=== PATIENT | female | born 1970 | race American Indian/Alaskan Native ===

== ENCOUNTER 2018-09-03 12:57 | Inpatient (IN) | payer OTHER ==
--- NOTE | 2018-09-03 14:16 | ED PDOC ---
Lower Extremity Pain/Injury Time Seen by Provider: 09/03/18 13:35 Chief Complaint (Nursing): Lower Extremity Problem/Injury Chief Complaint (Provider): Lower Extremity Problem/Injury History Per: Patient History/Exam Limitations: no limitations Onset/Duration Of Symptoms: Days Current Symptoms Are (Timing): Still Present Additional Complaint(s): 47 y/o female presents to the ED for evaluation of right lower extremity pain. Patient recently had a Patella Tear Repair to her right leg on 08/17/2018 by Orthopedic Surgeon, Dr. Potts. Patient reports of developing a fever, redness and pain to the area on 08/27/2018. Patient states she was seen and evaluated at a hospital in [place] yesterday where an XR was taken. Patient was given a dose of Vancomycin. Patient states her temperature today was 99.9. Patient reports of last taking Tylenol today. Patient was sent here by Dr. Potts's PA for further evaluation. PMD: unknown: Orthopedic Surgeon: Dr. Potts Past Medical History Reviewed: Historical Data, Nursing Documentation, Vital Signs Vital Signs: Last Vital Signs Temp 98.5 F 09/03/18 13:09 Pulse 86 09/03/18 13:09 Resp 20 09/03/18 13:09 BP 126/76 09/03/18 13:09 Pulse Ox 100 09/03/18 13:09 - Medical History PMH: HTN Denies: Chronic Kidney Disease - Surgical History Other surgeries: Patella Tear Repair on 08/17/2018 - Family History Family History: States: Unknown Family Hx - Home Medications Home Medications: Ambulatory Orders Medication Instructions Recorded Acetaminophen [Tylenol Extra 500 mg PO Q6 PRN 09/03/18 Strength] Ferrous Sulfate [Feosol] 325 mg PO Q12 09/03/18 Lactobacillus Combination No.8 1 cap PO DAILY 09/03/18 [Adult Probiotic] Multivitamin [Multi-Vitamin Daily] 1 tab PO DAILY 09/03/18 hydroCHLOROthiazide [Microzide] 12.5 mg PO DAILY 09/03/18 oxyCODONE/Acetaminophen [Percocet 1 tab PO Q6 PRN 09/03/18 5/325 mg Tab] traMADol [Ultram] 50 mg PO Q6 PRN 09/03/18 - Allergies Allergies/Adverse Reactions: Allergies Allergy/AdvReac Type Severity Reaction Status Date / Time codeine Allergy RASH Verified 09/03/18 13:07 ibuprofen [From Motrin] Allergy RASH Verified 09/03/18 13:07 Review of Systems ROS Statement: Except As Marked, All Systems Reviewed And Found Negative Constitutional: Positive for: Fever Musculoskeletal: Positive for: Leg Pain (right patella region) Physical Exam - Reviewed Nursing Documentation Reviewed: Yes Vital Signs Reviewed: Yes - Physical Exam Appears: Positive for: Uncomfortable Extremity: Positive for: Tenderness (to palpation.), Other (Right Knee adenimous, warm compared to left. No crepidous. No drainage, incision is clean, dry and intact. ). Negative for: Normal ROM (Decreased ROM secondary to pain. ) Neurologic/Psych: Positive for: Alert, Oriented. Negative for: Motor/Sensory Deficits - Laboratory Results Result Diagrams: 09/05/18 06:30 09/05/18 06:30 - ECG O2 Sat by Pulse Oximetry: 100 (RA) Pulse Ox Interpretation: Normal Medical Decision Making Medical Decision Making: Time: 1408 Plan: -- CMP -- CBC with Differential -- PTT -- Prothrombin Time -- Blood Culture Time: 1410 -- Spoke to Dr. Potts's PA, [facility] who states she will evaluate the patient in the ED at 1500 Time: 1500 -- Patient endorsed to Dr. Thayer, pending orthopedic PA evaluation and final ER disposition. Scribe Attestation: Documented by Chelsey Hodges, acting as a scribe for Kathy Ahmadi MD. Provider Scribe Attestation: All medical record entries made by the Scribe were at my direction and personally dictated by me. I have reviewed the chart and agree that the record accurately reflects my personal performance of the history, physical exam, medical decision making, and the department course for this patient. I have also personally directed, reviewed, and agree with the discharge instructions and disposition. Disposition - Clinical Impression Clinical Impression: Septic arthritis - Patient ED Disposition Is Patient to be Admitted: Transfer of Care - Disposition Disposition: Transfer of Care Disposition Time: 15:00 Condition: STABLE Patient Signed Over To: Alli Thayer Handoff Comments: pending orthopedic PA evaluation and final ER disposition.
[2018-09-03 14:59] LABS: INR 1.2; PROTHROMBIN TIME 14.1 Seconds (9.8-13.1)
[2018-09-03 15:01] LABS: PARTIAL THROMBOPLASTIN TIME 28.6 Seconds (25.6-37.1)
[2018-09-03 15:09] LABS: BASO # 0.1 K/uL (0.0-0.2); BASO % 0.7 % (0.0-2.0); EOS # 0.2 K/uL (0.0-0.7); EOS % 2.4 % (0.0-4.0); HEMOGLOBIN 8.2 g/dL (12.0-16.0); LYMPH # 1.8 K/uL (1.0-4.3); LYMPH % 24.7 % (20.0-40.0); MEAN CELL VOLUME 82.4 fl (81.0-99.0); MEAN CORPUSCULAR HEMOGLOBIN 25.4 pg (27.0-31.0); MEAN CORPUSCULAR HGB CONC 30.8 g/dL (33.0-37.0); MONO # 0.5 K/uL (0.0-0.8); MONO % 7.4 % (0.0-10.0); NEUT # 4.8 K/uL (1.8-7.0); NEUT % 64.8 % (50.0-75.0); NRBC % 0.1 % (0.0-0.0); RBC 3.24 Mil/uL (3.80-5.20); RED CELL DISTRIBUTION WIDTH 12.8 % (11.5-14.5); WHITE BLOOD COUNT 7.3 K/uL (4.8-10.8)
[2018-09-03 15:14] LABS: ALBUMIN 3.7 g/dL (3.5-5.0); ALT/SGPT 16 U/L (9-52); AST/SGOT 33 U/L (14-36); BLOOD UREA NITROGEN 12 mg/dl (7-17); CALCIUM 8.9 mg/dL (8.4-10.2); GFR NON-AFRICAN AMERICAN > 60
[2018-09-03] MEDS ORDERED: Povidone Iodine Oint 10% Foilpak UD ONE (15:18)
--- NOTE | 2018-09-03 15:33 | ED PDOC ---
- Laboratory Results Result Diagrams: 09/03/18 14:30 09/03/18 14:30 Interpretation Of Abn Labs: wbc in synovial fluid - ECG O2 Sat by Pulse Oximetry: 100 (RA) Pulse Ox Interpretation: Normal - Progress ED Course And Treament: 1850: Stable. Does not meet sepsis criteria. Spoke with Dr. Castillo, who will admit. Medical Decision Making Medical Decision Making: Time: 1500 -- Patient endorsed to me by Dr. Thayer, pending orthopedic PA evaluation and final ER disposition. ____ Scribe Attestation: Documented by Chelsey Hodges, acting as a scribe for Alli Thayer MD. Provider Scribe Attestation: All medical record entries made by the Scribe were at my direction and personally dictated by me. I have reviewed the chart and agree that the record accurately reflects my personal performance of the history, physical exam, medical decision making, and the department course for this patient. I have also personally directed, reviewed, and agree with the discharge instructions and disposition. 1630: Stable. Spoke with Dr. Delroy Clemons. She tapped the knee and waiting results. Potentially will take to the OR if needed. NPO. 1845: Dr. Rizzo at bedside. Wants admit to medicine. Pt. to go to the OR for cleaning tomorrow. Stable. AAOx3. Disposition - Clinical Impression Clinical Impression: Septic arthritis - POA Present On Arrival: Surgical Site Infection - Disposition Disposition: Admitted as In-Patient Disposition Time: 18:46 Condition: FAIR
[2018-09-03] MEDS ORDERED: Lidocaine 1% Inj (20ml) IJ STA (15:54)
[2018-09-03] MEDS ORDERED: Lidocaine 1% Inj (20ml) ONE (16:00)
--- NOTE | 2018-09-03 16:53 | CP.PCM.CON ---
History of Present Illness - History of Present Illness History of Present Illness: 47 yo F pt of Dr. Potts presents with right knee pain and swelling. Pt had right knee arthroscopy [address] Potts. Pt reports one week later started to have fevers, swelling, redness and warmth of right knee. Pt currently ambulating with a walker. Pt seen in office to today and sent to ED for rt knee aspiration and possible I&D. Pt reports she went back to ED yesterday and received IV abx and was discharged. Pt reports limited and painful ROM of right knee. Denies SOB, chest pain, N/V/D, numbness/tingling RLE. Denies current fever or chills. Denies wound drainage. Review of Systems - Constitutional Constitutional: As Per HPI, Chills. absent: Anorexia, Daytime Sleepiness, Excessive Sweating, Fatigue, Fever, Frequent Falls, Headache, Increased Appe tite, Lethargy, Malaise, Night Sweats, Snoring, Sleep Apnea, Weight Gain, Weight Loss, Weakness, Other - Musculoskeletal Musculoskeletal: As Per HPI Past Patient History - Past Social History Smoking Status: Never Smoked - CARDIAC Hx Hypertension: Yes - PULMONARY Hx Respiratory Disorders: No - NEUROLOGICAL Hx Neurological Disorder: No - HEENT Hx HEENT Problems: No - RENAL Hx Chronic Kidney Disease: No - ENDOCRINE/METABOLIC Hx Endocrine Disorders: No - HEMATOLOGICAL/ONCOLOGICAL Other/Comment: G6PD deficiency - INTEGUMENTARY Hx Dermatological Problems: No - MUSCULOSKELETAL/RHEUMATOLOGICAL Hx Musculoskeletal Disorders: No - GASTROINTESTINAL Hx Gastrointestinal Disorders: No - GENITOURINARY/GYNECOLOGICAL Hx Genitourinary Disorders: No - PSYCHIATRIC Hx Psychophysiologic Disorder: No Hx Substance Use: No - SURGICAL HISTORY Hx Surgeries: Yes Hx Orthopedic Surgery: Yes (patella tear R knee) - ANESTHESIA Hx Anesthesia: Yes Hx Anesthesia Reactions: No Hx Malignant Hyperthermia: No Meds Allergies/Adverse Reactions: Allergies Allergy/AdvReac Type Severity Reaction Status Date / Time codeine Allergy RASH Verified 09/03/18 13:07 ibuprofen [From Motrin] Allergy RASH Verified 09/03/18 13:07 Physical Exam - Constitutional Appears: Well - Respiratory Exam Respiratory Exam: Clear to Auscultation Bilateral, NORMAL BREATHING PATTERN - Cardiovascular Exam Cardiovascular Exam: REGULAR RHYTHM, RRR - Extremities Exam Additional comments: RLE: +swelling, +erythema, +warmth Incision sites C/D/I ROM limited due to pain, apin with flexion Active flexion to 30deg Calves soft and nontender b/l DIstal pulses wnl N/V intact distally Results - Vital Signs Recent Vital Signs: Last Vital Signs Temp 98.5 F 09/03/18 13:09 Pulse 86 09/03/18 13:09 Resp 20 09/03/18 13:09 BP 126/76 09/03/18 13:09 Pulse Ox 100 09/03/18 16:42 - Labs Result Diagrams: 09/03/18 14:30 09/03/18 14:30 Labs: Laboratory Results - last 24 hr 09/03/18 09/03/18 09/03/18 14:30 14:30 14:30 WBC 7.3 RBC 3.24 L Hgb 8.2 L Hct 26.7 L MCV 82.4 MCH 25.4 L MCHC 30.8 L RDW 12.8 Plt Count 458 H MPV 9.0 Neut % (Auto) 64.8 Lymph % (Auto) 24.7 [place] % (Auto) 7.4 Eos % (Auto) 2.4 Baso % (Auto) 0.7 Neut # (Auto) 4.8 Lymph # (Auto) 1.8 [place] # (Auto) 0.5 Eos # (Auto) 0.2 Baso # (Auto) 0.1 PT 14.1 H INR 1.2 APTT 28.6 Sodium 138 Potassium 4.3 Chloride 102 Carbon Dioxide 29 Anion Gap 11 BUN 12 Creatinine 0.6 L Est GFR ( Amer) > 60 Est GFR (Non-Af Amer) > 60 Random Glucose 89 Calcium 8.9 Total Bilirubin 0.6 AST 33 ALT 16 Alkaline Phosphatase 53 Total Protein 7.4 Albumin 3.7 Globulin 3.7 Albumin/Globulin Ratio 1.0 Assessment & Plan - Assessment and Plan (Free Text) Assessment: 47 yo F presents with right knee possible septic arthritis Plan: Pt right knee aspirated in sterile manner, rt knee area cleaned with betadine, 1cc lidocaine injected, 6cc bloody fluid aspirated Pending lab results- gram stain, culture and cell count Pt white count wnl- pt received IV abx yesterday in ER NPO Pt may require rt knee arthroscopic I&D pending lab results by Dr. Rizzo- cover ing for Dr. Potts Discussed with Dr. Rizzo - Date & Time Date: 09/03/18 Time: 17:00
[2018-09-03 16:54] LABS: FLUID TYPE SYNOVIAL FLUID
[2018-09-03 17:30] LABS: SF GROSS APPEARANCE BLOODY (CLEAR)
[2018-09-03 17:49] LABS: SYNOVIAL FLUID MONO/MACROPHAGE 4 % (0-0)
[2018-09-03] MEDS ORDERED: Vancomycin 1 g Inj ONE (18:54)
[2018-09-04] MEDS: Morphine 4 MG/ML VIAL IVP PRN ×3 (04:50→22:53)
--- NOTE | 2018-09-04 09:21 | CP.PCM.HP ---
History of Present Illness - History of Present Illness History of Present Illness: 47 YR OLD FEMALE ADMITTED WITH C/O R KNEE PAIN,FEVER WITH CHILLS,REDNESS OF R KNEE AND DIFFICULTY AMBULATING.SHE IS S/P R KNEE ARTHROSCOPIC SURGERY 1 WEEK AGO FOLLOWING TRAUMA AT WORK. SHE HAD R KNEE ARTHROCENTESES DONE YESTERDAY FOR EVALUATION OF SEPTIC ARTHRITIS. PMH-HTN AND G6PD DEFICIENCY HX OF CODEINE ALLERGY Present on Admission - Present on Admission Any Indicators Present on Admission: No Past Patient History - Past Medical History & Family History Past Medical History?: Yes - Past Social History Smoking Status: Never Smoked - CARDIAC Hx Cardiac Disorders: Yes Hx Angina: No Hx Cardia Arrhythmia: No Hx Congestive Heart Failure: No Hx Heart Attack: No Hx Heart Murmur: No Hx Heart Transplant: No Hx Hypercholesterolemia: No Hx Hypertension: Yes Hx Hypotension: No Hx Internal Defibrillator: No Hx Mitral Valve Prolapse: No Hx Pacemaker: No Hx Peripheral Edema: No Hx Peripheral Vascular Disease: No - PULMONARY Hx Respiratory Disorders: No - NEUROLOGICAL Hx Neurological Disorder: No - HEENT Hx HEENT Problems: No - RENAL Hx Chronic Kidney Disease: No - ENDOCRINE/METABOLIC Hx Endocrine Disorders: No - HEMATOLOGICAL/ONCOLOGICAL Hx AIDS: No Hx Human Immunodeficiency Virus (HIV): No - INTEGUMENTARY Hx Dermatological Problems: No - MUSCULOSKELETAL/RHEUMATOLOGICAL Hx Musculoskeletal Disorders: Yes Hx Arthritis: Yes Hx Falls: No - GASTROINTESTINAL Hx Gastrointestinal Disorders: No Hx Bowel Surgery: No Hx Clostridium Difficile: No Hx Colitis: No Hx Colostomy: No Hx Crohn's Disease: No Hx Diverticulitis: No Hx Esophageal Varices: No Hx Fatty Liver Disease: No Hx Gall Bladder Disease: No Hx Gastritis: No Hx Gastroesophageal Reflux: Yes Hx Hemorrhoids: Yes Hx Ileostomy: No Hx Irritable Bowel: No Hx Liver Failure: No Hx Pancreatitis: No HX Swallowing Problems: No Hx Ulcer: No Other/Comment: H.Pylori - GENITOURINARY/GYNECOLOGICAL Hx Genitourinary Disorders: No - PSYCHIATRIC Hx Psychophysiologic Disorder: No Hx Substance Use: No - SURGICAL HISTORY Hx Surgeries: Yes Hx Abdominal Aortic Aneurysm Repair: No Hx Amputation: No Hx Angiogram: No Hx Angioplasty: No Hx Appendectomy: No Hx Arteriovenous Shunt: No Hx Arthroscopy: No Hx Bile Duct Stent: No Hx Breast Biopsy: No Hx Cataract Extraction: No Hx Cardiac Catheterization: No Hx Carotid Endarterectomy: No Hx Section: No Hx Cholecystectomy: No Hx Coronary Artery Bypass Graft: No Hx Coronary Stent: No Hx Dilation and Curettage: No Hx Eye Surgery: No Hx Femoral-Popliteal Bypass Graft: No Hx Gastric Bypass Surgery: No Hx Herniorrhaphy: No Hx Hysterectomy: No Hx Joint Replacement: No Hx Kidney Transplant: No Hx Liver Transplant: No Hx Mastectomy: No Hx Musculoskeletal Surgery: No Hx Open Heart Surgery: No Hx Open Reduction Internal Fixation: No Hx Orthopedic Surgery: Yes (patella tear R knee) Hx Parathyroidectomy: No Hx Penile Implant: No Hx Pulmonary Surgery: No Hx Splenectomy: No Hx Thyroidectomy: No Hx Tonsillectomy: No Hx Tubal Ligation: No Hx Valve Replacement: No Hx Vascular Surgery: No Hx Vascular Access Device: No - ANESTHESIA Hx Anesthesia: Yes Hx Anesthesia Reactions: No Hx Malignant Hyperthermia: No Has any member of the family had a problem w/ anesthesia?: No Meds Allergies/Adverse Reactions: Allergies Allergy/AdvReac Type Severity Reaction Status Date / Time codeine Allergy RASH Verified 09/03/18 13:07 ibuprofen [From Motrin] Allergy RASH Verified 09/03/18 13:07 Physical Exam - Constitutional Appears: Well, In Acute Distress - Head Exam Head Exam: ATRAUMATIC, NORMAL INSPECTION, NORMOCEPHALIC - Eye Exam Eye Exam: EOMI, Normal appearance, PERRL Pupil Exam: NORMAL ACCOMODATION, PERRL - ENT Exam ENT Exam: Mucous Membranes Moist, Normal Exam - Neck Exam Neck exam: Positive for: Normal Inspection - Respiratory Exam Respiratory Exam: Clear to Auscultation Bilateral, NORMAL BREATHING PATTERN - Cardiovascular Exam Cardiovascular Exam: REGULAR RHYTHM - GI/Abdominal Exam GI & Abdominal Exam: Normal Bowel Sounds, Soft. absent: Tenderness - Rectal Exam Rectal Exam: NORMAL INSPECTION - Extremities Exam Extremities exam: Positive for: tenderness Additional comments: R KNEE SWELLING AND TENDERNESS WITH POOR RANGE OF MOTION SURGICAL SITE CLEAN NO CALF TENDERNESS - Back Exam Back exam: NORMAL INSPECTION - Neurological Exam Neurological exam: Alert, CN II-XII Intact, Normal Gait, Oriented x3, Reflexes Normal - Psychiatric Exam Psychiatric exam: Normal Affect, Normal Mood - Skin Skin Exam: Dry, Intact, Normal Color, Warm Results - Vital Signs Recent Vital Signs: Last Vital Signs Temp 98.5 F 09/04/18 09:07 Pulse 78 09/04/18 09:07 Resp 20 09/04/18 09:07 BP 119/79 09/04/18 09:07 Pulse Ox 99 09/04/18 09:07 - Labs Result Diagrams: 09/03/18 14:30 09/03/18 14:30 Labs: Laboratory Results - last 24 hr 09/03/18 09/03/18 09/03/18 14:30 14:30 14:30 WBC 7.3 RBC 3.24 L Hgb 8.2 L Hct 26.7 L MCV 82.4 MCH 25.4 L MCHC 30.8 L RDW 12.8 Plt Count 458 H MPV 9.0 Neut % (Auto) 64.8 Lymph % (Auto) 24.7 [place] % (Auto) 7.4 Eos % (Auto) 2.4 Baso % (Auto) 0.7 Neut # (Auto) 4.8 Lymph # (Auto) 1.8 [place] # (Auto) 0.5 Eos # (Auto) 0.2 Baso # (Auto) 0.1 PT 14.1 H INR 1.2 APTT 28.6 Sodium 138 Potassium 4.3 Chloride 102 Carbon Dioxide 29 Anion Gap 11 BUN 12 Creatinine 0.6 L Est GFR ( Amer) > 60 Est GFR (Non-Af Amer) > 60 Random Glucose 89 Calcium 8.9 Total Bilirubin 0.6 AST 33 ALT 16 Alkaline Phosphatase 53 Total Protein 7.4 Albumin 3.7 Globulin 3.7 Albumin/Globulin Ratio 1.0 Fluid Type Synovial WBC Synovial RBC Synovial Neutrophils Synovial Lymphocytes Synov Monos/Macrophage Synovial Fluid Comment 09/03/18 16:45 WBC RBC Hgb Hct MCV MCH MCHC RDW Plt Count MPV Neut % (Auto) Lymph % (Auto) [place] % (Auto) Eos % (Auto) Baso % (Auto) Neut # (Auto) Lymph # (Auto) [place] # (Auto) Eos # (Auto) Baso # (Auto) PT INR APTT Sodium Potassium Chloride Carbon Dioxide Anion Gap BUN Creatinine Est GFR ( Amer) Est GFR (Non-Af Amer) Random Glucose Calcium Total Bilirubin AST ALT Alkaline Phosphatase Total Protein Albumin Globulin Albumin/Globulin Ratio Fluid Type Synovial fluid Synovial WBC 2484.0 H Synovial RBC 60417.0 H Synovial Neutrophils 93.0 H Synovial Lymphocytes 3.0 H Synov Monos/Macrophage 4 H Synovial Fluid Comment TEST NOT PERFORMED Assessment & Plan - Assessment and Plan (Free Text) Assessment: SEPTIC ARTHRITIS OF R KNEE HX OF HTN-STABLE HX OG6PD DEFICIENCY Plan: PT RECENTLY HAD A COMPLETE WORKUP PRIOR TO KNEE SURGERY MEDICALLY CLEARED FOR R KNEE SURGERY - Date & Time Date: 09/04/18 Time: 09:30
[2018-09-04] MEDS ORDERED: Lidocaine 1% 5ml Abboject ONE (09:41)
[2018-09-04] MEDS ORDERED: Midazolam 2 MG/2 ML VIAL ONE (09:41)
[2018-09-04] MEDS ORDERED: Lidocaine 2% Jelly (5 ml) TOP ONE (09:41)
[2018-09-04] MEDS ORDERED: Propofol 10 mg/ml Inj (20 ML) ONE (09:41)
[2018-09-04] MEDS ORDERED: Bupivacaine 0.5% Inj(30mL) ONE (09:44)
[2018-09-04] MEDS ORDERED: Lidocaine 1% Inj (20ml) ONE (09:44)
[2018-09-04] MEDS ORDERED: Lactated Ringer's 1,000 ML IV ONE (10:15)
--- NOTE | 2018-09-04 11:38 | PCM.SURG1 ---
Surgeon's Initial Post Op Note - Surgeon's Notes Surgeon: Duane Rizzo MD Assistant Office Manager: Ken Conner PA-C Type of Anesthesia: General Endo, General LMA Pre-Operative Diagnosis: Infected right knee Operative Findings: see op report Post-Operative Diagnosis: same as pre-op dx Operation Performed: Arthroscopic right knee irrigation and debridement Specimen/Specimens Removed: cultures Estimated Blood Loss: EBL {In ML}: 3 Date of Surgery/Procedure: 09/04/18 Time of Surgery/Procedure: 10:30
--- NOTE | 2018-09-04 13:37 | CP.PCM.CON ---
History of Present Illness - History of Present Illness History of Present Illness: Infectious Disease Consultation- Asked to see this patient at the request of for septic knee joint. HPI- Patient is a 47 year old female who was admitted for treatment o f septic right knee. PAtietn sattes that she injured her knee at work and was seen By DR. horn and had arthroscopy 08/17/2018 and few days later she noticed that the knee was getting swollen and red and she developed fever of up to 102 and initially she went to ED [facility] and was given a dose of vancomycin and she felt slightly better but she was d/c and her symptom were not improving and hence she spoke to her ortho doctor who advised her to come to [facility] and be admitted for further work up and treatment of this. pt. is s/p Right Knee arthroscopy earlier today with drainage of both bloody and purulent fluid as per patient. I'm asked to evaluate and help with antibiotic management. She denies any fever or chills at thi time. She states her knee is still swollen and tender but not as red as before and no dark discoloration as she had a week ago. PMH-HTN AND G6PD DEFICIENCY HX OF CODEINE ALLERGY denies any allergy to any antibiotics. Review of Systems - Review of Systems Review of Systems: ROS- had fever but denies any fever now, jake any BRITO, denies any cough or sob, denies trevor ehst pain, denies any abd. pain, denies any nausea or vomiting, denies any dysurea, denies any diarrhea Right knee edema and redness and pain Past Patient History - Past Medical History & Family History Past Medical History?: Yes - Past Social History Smoking Status: Never Smoked - CARDIAC Hx Cardiac Disorders: Yes Hx Angina: No Hx Cardia Arrhythmia: No Hx Congestive Heart Failure: No Hx Heart Attack: No Hx Heart Murmur: No Hx Heart Transplant: No Hx Hypercholesterolemia: No Hx Hypertension: Yes Hx Hypotension: No Hx Internal Defibrillator: No Hx Mitral Valve Prolapse: No Hx Pacemaker: No Hx Peripheral Edema: No Hx Peripheral Vascular Disease: No - PULMONARY Hx Respiratory Disorders: No - NEUROLOGICAL Hx Neurological Disorder: No - HEENT Hx HEENT Problems: No - RENAL Hx Chronic Kidney Disease: No - ENDOCRINE/METABOLIC Hx Endocrine Disorders: No - INTEGUMENTARY Hx Dermatological Problems: No - MUSCULOSKELETAL/RHEUMATOLOGICAL Hx Musculoskeletal Disorders: Yes Hx Arthritis: Yes Hx Falls: No - GASTROINTESTINAL Hx Gastrointestinal Disorders: No Hx Bowel Surgery: No Hx Clostridium Difficile: No Hx Colitis: No Hx Colostomy: No Hx Crohn's Disease: No Hx Diverticulitis: No Hx Esophageal Varices: No Hx Fatty Liver Disease: No Hx Gall Bladder Disease: No Hx Gastritis: No Hx Gastroesophageal Reflux: Yes Hx Hemorrhoids: Yes Hx Ileostomy: No Hx Irritable Bowel: No Hx Liver Failure: No Hx Pancreatitis: No HX Swallowing Problems: No Hx Ulcer: No Other/Comment: H.Pylori - GENITOURINARY/GYNECOLOGICAL Hx Genitourinary Disorders: No - PSYCHIATRIC Hx Psychophysiologic Disorder: No Hx Substance Use: No - SURGICAL HISTORY Hx Surgeries: Yes Hx Abdominal Aortic Aneurysm Repair: No Hx Amputation: No Hx Angiogram: No Hx Angioplasty: No Hx Appendectomy: No Hx Arteriovenous Shunt: No Hx Arthroscopy: No Hx Bile Duct Stent: No Hx Breast Biopsy: No Hx Cataract Extraction: No Hx Cardiac Catheterization: No Hx Carotid Endarterectomy: No Hx Section: No Hx Cholecystectomy: No Hx Coronary Artery Bypass Graft: No Hx Coronary Stent: No Hx Dilation and Curettage: No Hx Eye Surgery: No Hx Femoral-Popliteal Bypass Graft: No Hx Gastric Bypass Surgery: No Hx Herniorrhaphy: No Hx Hysterectomy: No Hx Joint Replacement: No Hx Kidney Transplant: No Hx Liver Transplant: No Hx Mastectomy: No Hx Musculoskeletal Surgery: No Hx Open Heart Surgery: No Hx Open Reduction Internal Fixation: No Hx Orthopedic Surgery: Yes (patella tear R knee) Hx Parathyroidectomy: No Hx Penile Implant: No Hx Pulmonary Surgery: No Hx Splenectomy: No Hx Thyroidectomy: No Hx Tonsillectomy: No Hx Tubal Ligation: No Hx Valve Replacement: No Hx Vascular Surgery: No Hx Vascular Access Device: No - ANESTHESIA Hx Anesthesia: Yes Hx Anesthesia Reactions: No Hx Malignant Hyperthermia: No Has any member of the family had a problem w/ anesthesia?: No Meds Allergies/Adverse Reactions: Allergies Allergy/AdvReac Type Severity Reaction Status Date / Time codeine Allergy RASH Verified 09/03/18 13:07 ibuprofen [From Motrin] Allergy RASH Verified 09/03/18 13:07 - Medications Medications: Current Medications Acetaminophen (Tylenol 325mg Tab) 650 mg PO Q4 PRN PRN Reason: temperature 101 F and above Hydrochlorothiazide (Microzide) 12.5 mg PO DAILY LINDA Vancomycin HCl 1 gm/ Sodium (Chloride) 250 mls @ 166.667 mls/hr IVPB DAILY LINDA; Protocol Lactated Ringer's (Lactated Ringer's) 1,000 mls @ 100 mls/hr IV .Q10H LINDA Meperidine HCl (Demerol) 25 mg IVP Q10M PRN PRN Reason: Pain, moderate (4-7) Last Admin: 09/04/18 11:40 Dose: 25 mg Morphine Sulfate (Morphine) 2 mg IVP Q6 PRN PRN Reason: Pain, severe (8-10) Last Admin: 09/04/18 04:50 Dose: 2 mg Ondansetron HCl (Zofran Inj) 4 mg IVP ONCE PRN PRN Reason: Nausea/Vomiting Stop: 09/04/18 13:42 Physical Exam - Constitutional Appears: No Acute Distress - Head Exam Head Exam: ATRAUMATIC - Eye Exam Eye Exam: EOMI, PERRL - ENT Exam ENT Exam: Normal Oropharynx - Neck Exam Neck exam: Positive for: Full Rom - Respiratory Exam Respiratory Exam: Clear to Auscultation Bilateral, NORMAL BREATHING PATTERN - Cardiovascular Exam Cardiovascular Exam: RRR, +S1, +S2 - GI/Abdominal Exam GI & Abdominal Exam: Normal Bowel Sounds, Soft Additional comments: NT, Nd - Extremities Exam Additional comments: right patellar region with edema and tenderness , warm to touch mild erythema no discharge - Neurological Exam Neurological exam: Alert, Oriented x3 Results - Vital Signs Recent Vital Signs: Last Vital Signs Temp 97 F L 09/04/18 12:35 Pulse 78 09/04/18 12:35 Resp 18 09/04/18 12:35 BP 145/86 09/04/18 12:35 Pulse Ox 97 09/04/18 12:35 - Labs Result Diagrams: 09/03/18 14:30 09/03/18 14:30 Labs: Laboratory Results - last 24 hr 09/03/18 09/03/18 09/03/18 14:30 14:30 14:30 WBC 7.3 RBC 3.24 L Hgb 8.2 L Hct 26.7 L MCV 82.4 MCH 25.4 L MCHC 30.8 L RDW 12.8 Plt Count 458 H MPV 9.0 Neut % (Auto) 64.8 Lymph % (Auto) 24.7 [place] % (Auto) 7.4 Eos % (Auto) 2.4 Baso % (Auto) 0.7 Neut # (Auto) 4.8 Lymph # (Auto) 1.8 [place] # (Auto) 0.5 Eos # (Auto) 0.2 Baso # (Auto) 0.1 PT 14.1 H INR 1.2 APTT 28.6 Sodium 138 Potassium 4.3 Chloride 102 Carbon Dioxide 29 Anion Gap 11 BUN 12 Creatinine 0.6 L Est GFR ( Amer) > 60 Est GFR (Non-Af Amer) > 60 Random Glucose 89 Calcium 8.9 Total Bilirubin 0.6 AST 33 ALT 16 Alkaline Phosphatase 53 Total Protein 7.4 Albumin 3.7 Globulin 3.7 Albumin/Globulin Ratio 1.0 Fluid Type Synovial WBC Synovial RBC Synovial Neutrophils Synovial Lymphocytes Synov Monos/Macrophage Synovial Fluid Comment 09/03/18 16:45 WBC RBC Hgb Hct MCV MCH MCHC RDW Plt Count MPV Neut % (Auto) Lymph % (Auto) [place] % (Auto) Eos % (Auto) Baso % (Auto) Neut # (Auto) Lymph # (Auto) [place] # (Auto) Eos # (Auto) Baso # (Auto) PT INR APTT Sodium Potassium Chloride Carbon Dioxide Anion Gap BUN Creatinine Est GFR ( Amer) Est GFR (Non-Af Amer) Random Glucose Calcium Total Bilirubin AST ALT Alkaline Phosphatase Total Protein Albumin Globulin Albumin/Globulin Ratio Fluid Type Synovial fluid Synovial WBC 2484.0 H Synovial RBC 65744.0 H Synovial Neutrophils 93.0 H Synovial Lymphocytes 3.0 H Synov Monos/Macrophage 4 H Synovial Fluid Comment TEST NOT PERFORMED Laboratory Results - last 72 hr 09/03/18 09/03/18 09/03/18 14:30 14:30 14:30 WBC 7.3 RBC 3.24 L Hgb 8.2 L Hct 26.7 L MCV 82.4 MCH 25.4 L MCHC 30.8 L RDW 12.8 Plt Count 458 H MPV 9.0 Neut % (Auto) 64.8 Lymph % (Auto) 24.7 [place] % (Auto) 7.4 Eos % (Auto) 2.4 Baso % (Auto) 0.7 Neut # (Auto) 4.8 Lymph # (Auto) 1.8 [place] # (Auto) 0.5 Eos # (Auto) 0.2 Baso # (Auto) 0.1 PT 14.1 H INR 1.2 APTT 28.6 Sodium 138 Potassium 4.3 Chloride 102 Carbon Dioxide 29 Anion Gap 11 BUN 12 Creatinine 0.6 L Est GFR ( Amer) > 60 Est GFR (Non-Af Amer) > 60 Random Glucose 89 Calcium 8.9 Total Bilirubin 0.6 AST 33 ALT 16 Alkaline Phosphatase 53 Total Protein 7.4 Albumin 3.7 Globulin 3.7 Albumin/Globulin Ratio 1.0 Fluid Type Synovial WBC Synovial RBC Synovial Neutrophils Synovial Lymphocytes Synov Monos/Macrophage Synovial Fluid Comment 09/03/18 16:45 WBC RBC Hgb Hct MCV MCH MCHC RDW Plt Count MPV Neut % (Auto) Lymph % (Auto) [place] % (Auto) Eos % (Auto) Baso % (Auto) Neut # (Auto) Lymph # (Auto) [place] # (Auto) Eos # (Auto) Baso # (Auto) PT INR APTT Sodium Potassium Chloride Carbon Dioxide Anion Gap BUN Creatinine Est GFR ( Amer) Est GFR (Non-Af Amer) Random Glucose Calcium Total Bilirubin AST ALT Alkaline Phosphatase Total Protein Albumin Globulin Albumin/Globulin Ratio Fluid Type Synovial fluid Synovial WBC 2484.0 H Synovial RBC 01133.0 H Synovial Neutrophils 93.0 H Synovial Lymphocytes 3.0 H Synov Monos/Macrophage 4 H Synovial Fluid Comment TEST NOT PERFORMED Microbiology 09/03/18 15:20 Blood-Venous Blood Culture - Preliminary NO GROWTH AFTER 24 HOURS 09/03/18 14:30 Blood-Venous Blood Culture - Preliminary NO GROWTH AFTER 24 HOURS 09/03/18 17:11 Other: Please Indicate Gram Stain - Final 09/03/18 17:11 Other: Please Indicate Body Fluid Culture - Preliminary NO GROWTH AFTER 24 HOURS Assessment & Plan (1) Septic arthritis Status: Acute - Assessment and Plan (Free Text) Assessment: A/P- 47 year old female with septic right knee. fever has subsided. normal wbc count blood cx- neg x 2 synovial fluid cx- pending synovial fluid cell count almost 3000 with almost all neutrophils. Plan- await synovial fluid cx. advsie to continue with IV vancomyicn that was initiated by the admitting team. keep vanco trough between 10-15. keep the right leg elevated . All labs and imaging results and chart notes reviewed. All above d/w patient in the presence of the nurse and patient verbalizes full understanding of all above and agrees with above plan of care. Thank you for allowing me to take part in the care of this patient.
[2018-09-04] MEDS: Lactated Ringer's 1,000 ML IV SCH ×2 (17:08→22:00)
--- NOTE | 2018-09-04 18:09 | CARD ---
APPROVED REPORT Date of service: 09/03/2018 EKG Measurement Heart [id number] <Conclusion> Normal sinus rhythm Normal ECG
[2018-09-05 07:52] LABS: BASO % 0.6 % (0.0-2.0); EOS # 0.3 K/uL (0.0-0.7); EOS % 3.9 % (0.0-4.0); HEMOGLOBIN 7.9 g/dL (12.0-16.0); LYMPH % 28.6 % (20.0-40.0); MEAN CELL VOLUME 80.6 fl (81.0-99.0); MEAN CORPUSCULAR HEMOGLOBIN 25.2 pg (27.0-31.0); MEAN CORPUSCULAR HGB CONC 31.2 g/dL (33.0-37.0); MEAN PLATELET VOLUME 8.5 fl (7.2-11.7); MONO # 0.6 K/uL (0.0-0.8); MONO % 8.5 % (0.0-10.0); NEUT # 4.2 K/uL (1.8-7.0); NEUT % 58.4 % (50.0-75.0); RBC 3.15 Mil/uL (3.80-5.20); WHITE BLOOD COUNT 7.1 K/uL (4.8-10.8)
[2018-09-05 08:27] LABS: BLOOD UREA NITROGEN 7 mg/dl (7-17); CALCIUM 8.5 mg/dL (8.4-10.2); GFR NON-AFRICAN AMERICAN > 60
[2018-09-05] MEDS: Morphine 4 MG/ML VIAL IVP PRN (11:09)
--- NOTE | 2018-09-05 11:47 | CP.PCM.PN ---
Subjective - Date & Time of Evaluation Date of Evaluation: 09/05/18 Time of Evaluation: 11:49 - Subjective Subjective: S/P I AND D OF R KNEE R KNEE STILL SWOLLEN Objective - Vital Signs/Intake and Output Vital Signs (last 24 hours): Temp Pulse Resp BP Pulse Ox 97.7 F 76 20 128/76 98 09/05/18 09:02 09/05/18 09:02 09/05/18 09:02 09/05/18 09:02 09/05/18 09:02 - Medications Medications: Current Medications Acetaminophen (Tylenol 325mg Tab) 650 mg PO Q4 PRN PRN Reason: temperature 101 F and above Hydrochlorothiazide (Microzide) 12.5 mg PO DAILY LINDA Last Admin: 09/05/18 08:42 Dose: Not Given Vancomycin HCl 1 gm/ Sodium (Chloride) 250 mls @ 166.667 mls/hr IVPB DAILY LINDA; Protocol Last Admin: 09/05/18 08:42 Dose: 166.667 mls/hr Lactated Ringer's (Lactated Ringer's) 1,000 mls @ 100 mls/hr IV .Q10H LINDA Last Admin: 09/04/18 22:00 Dose: 100 mls/hr Meperidine HCl (Demerol) 25 mg IVP Q10M PRN PRN Reason: Pain, moderate (4-7) Last Admin: 09/04/18 11:40 Dose: 25 mg Morphine Sulfate (Morphine) 2 mg IVP Q6 PRN PRN Reason: Pain, severe (8-10) Last Admin: 09/05/18 11:09 Dose: 2 mg - Labs Labs: 09/05/18 06:30 09/05/18 06:30 PT 14.1 Seconds (9.8-13.1) H 09/03/18 14:30 INR 1.2 09/03/18 14:30 APTT 28.6 Seconds (25.6-37.1) 09/03/18 14:30 - Constitutional Appears: No Acute Distress - Head Exam Head Exam: ATRAUMATIC, NORMAL INSPECTION, NORMOCEPHALIC - Eye Exam Eye Exam: EOMI, Normal appearance, PERRL Pupil Exam: NORMAL ACCOMODATION, PERRL - ENT Exam ENT Exam: Mucous Membranes Moist, Normal Exam - Neck Exam Neck Exam: Full ROM, Normal Inspection. absent: Lymphadenopathy - Respiratory Exam Respiratory Exam: Clear to Ausculation Bilateral, NORMAL BREATHING PATTERN - Cardiovascular Exam Cardiovascular Exam: REGULAR RHYTHM, +S1, +S2. absent: Murmur - GI/Abdominal Exam GI & Abdominal Exam: Soft, Normal Bowel Sounds. absent: Tenderness - Rectal Exam Rectal Exam: NORMAL INSPECTION - Extremities Exam Extremities Exam: Full ROM, Normal Capillary Refill, Pedal Edema, Tenderness. absent: Joint Swelling - Back Exam Back Exam: NORMAL INSPECTION - Neurological Exam Neurological Exam: Alert, Awake, CN II-XII Intact, Normal Gait, Oriented x3 - Psychiatric Exam Psychiatric exam: Normal Affect, Normal Mood - Skin Skin Exam: Dry, Intact, Normal Color, Warm Assessment and Plan - Assessment and Plan (Free Text) Assessment: SEPTIC ARTHRITIS R KNEE HTN HX OF G6PD DEFICIENCY ANEMIA DUE TO N8MP--[id number] Plan: CONTINUE IV ANTIBIOTIC RX WILL DISCUS D/C PLANS WITH SURGICAL TEAM MAY NEED PICC LINE AND IV VANCOMYCIN OUT PT
[2018-09-05] MEDS ORDERED: Simethicone 80 mg Chewtab PO PRN (23:44)
[2018-09-06] MEDS: Morphine 4 MG/ML VIAL IVP PRN (06:03)
--- NOTE | 2018-09-06 08:31 | CP.PCM.PN ---
Subjective - Date & Time of Evaluation Date of Evaluation: 09/06/18 Time of Evaluation: 07:30 - Subjective Subjective: Patient seen and examined at bedside. Pain well controlled, received IV morphine this AM. Notes that she has moderate to severe headaches to codeine derivatives, no real allergic reaction. Is able to take medication for pain is needed. Reports being able to transfer and bend knee easier. No actue events overnight. Denies CP/SOB/N/V/fever/BRITO. Objective - Vital Signs/Intake and Output Vital Signs (last 24 hours): Temp Pulse Resp BP Pulse Ox 98.0 F 72 18 144/86 98 09/06/18 00:01 09/06/18 00:01 09/06/18 00:01 09/06/18 00:01 09/06/18 00:01 - Medications Medications: Current Medications Acetaminophen (Tylenol 325mg Tab) 650 mg PO Q4 PRN PRN Reason: temperature 101 F and above Hydrochlorothiazide (Microzide) 12.5 mg PO DAILY LINDA Last Admin: 09/05/18 08:42 Dose: Not Given Vancomycin HCl 1 gm/ Sodium (Chloride) 250 mls @ 166.667 mls/hr IVPB Q12 LINDA; Protocol Last Admin: 09/05/18 21:23 Dose: 166.667 mls/hr Lactobacillus Acidophilus (Bacid Acidophilus) 1 cap PO DAILY LINDA Morphine Sulfate (Morphine) 2 mg IVP Q6 PRN PRN Reason: Pain, severe (8-10) Last Admin: 09/06/18 06:03 Dose: 2 mg Simethicone (Mylicon Chew Tab) 80 mg PO Q8 PRN PRN Reason: Flatulence - Labs Labs: 09/05/18 06:30 09/05/18 06:30 PT 14.1 Seconds (9.8-13.1) H 09/03/18 14:30 INR 1.2 09/03/18 14:30 APTT 28.6 Seconds (25.6-37.1) 09/03/18 14:30 - Extremities Exam Additional comments: R knee: Dressings CDI moderate swelling incisions CDI with nylon sutures, no drainage ROM 0-80 Sensation intact SP/DP/TN motor intact EHL/FHL/TA/G/Q/HS pedal pulses intact calves soft NT b/l Assessment and Plan (1) Septic arthritis Assessment & Plan: POD#2 s/p R knee arthroscopic I&D -abx as per ID, possible PICC -OR cultures show NGTD -PT/OT WBAT -dressings changed -pain control with scheduled tylenol and prn oxycodone -orthopedically stable for discharge to home with proper abx, visiting nurse services and home PT if IV abx required -f/u in office within 7-10 days -above d/w Dr. Rizzo in agreement Status: Acute
--- NOTE | 2018-09-06 09:36 | CP.PCM.PN ---
Subjective - Date & Time of Evaluation Date of Evaluation: 09/06/18 Time of Evaluation: 09:36 - Subjective Subjective: ID Note- Patient seen and examined today in the presence of nurse and [employer] silvano and pt's niece. patient explains she feels better and has better ROM of her right knee and denies any fever or chills. she has been afebrile here with normal wbc count and all her wound cx have remained negative so far. She explains she has a workman's comp doctor in [facility] whom she has seen from beginning as her right knee injury was secondary to work related injury. Objective - Vital Signs/Intake and Output Vital Signs (last 24 hours): Temp Pulse Resp BP Pulse Ox 98.8 F 78 19 136/78 98 09/06/18 08:52 09/06/18 08:52 09/06/18 08:52 09/06/18 08:52 09/06/18 08:52 - Medications Medications: Current Medications Acetaminophen (Tylenol 325mg Tab) 975 mg PO Q8 [facility] Hydrochlorothiazide (Microzide) 12.5 mg PO DAILY [facility] Last Admin: 09/05/18 08:42 Dose: Not Given Vancomycin HCl 1 gm/ Sodium (Chloride) 250 mls @ 166.667 mls/hr IVPB Q12 LINDA; Protocol Last Admin: 09/05/18 21:23 Dose: 166.667 mls/hr Lactobacillus Acidophilus (Bacid Acidophilus) 1 cap PO DAILY [facility] Morphine Sulfate (Morphine) 2 mg IVP Q6 PRN PRN Reason: Pain, severe (8-10) Last Admin: 09/06/18 06:03 Dose: 2 mg Oxycodone HCl (Oxycodone Immediate Release Tab) 5 mg PO Q4 PRN PRN Reason: Pain, Mild (1-3) Oxycodone HCl (Oxycodone Immediate Release Tab) 10 mg PO Q4 PRN PRN Reason: Pain, moderate (4-7) Simethicone (Mylicon Chew Tab) 80 mg PO Q8 PRN PRN Reason: Flatulence - Labs Labs: - Additional Findings Additional findings: - Constitutional Appears: No Acute Distress - Head Exam Head Exam: ATRAUMATIC - Eye Exam Eye Exam: EOMI, PERRL - ENT Exam ENT Exam: Normal Oropharynx - Neck Exam Neck exam: Positive for: Full Rom - Respiratory Exam Respiratory Exam: Clear to Auscultation Bilateral, NORMAL BREATHING PATTERN - Cardiovascular Exam Cardiovascular Exam: RRR, +S1, +S2 - GI/Abdominal Exam GI & Abdominal Exam: Normal Bowel Sounds, Soft Additional comments: NT, Nd - Extremities Exam Additional comments: right patellar region with much less edema and tenderness erythema resolved not warm to touch able to flex the knee - Neurological Exam Neurological exam: Alert, Oriented x 3 Laboratory Results - last 72 hr 09/03/18 09/03/18 09/03/18 14:30 14:30 16:45 WBC 7.3 RBC 3.24 L Hgb 8.2 L Hct 26.7 L MCV 82.4 MCH 25.4 L MCHC 30.8 L RDW 12.8 Plt Count 458 H MPV 9.0 Neut % (Auto) 64.8 Lymph % (Auto) 24.7 [place] % (Auto) 7.4 Eos % (Auto) 2.4 Baso % (Auto) 0.7 Neut # (Auto) 4.8 Lymph # (Auto) 1.8 [place] # (Auto) 0.5 Eos # (Auto) 0.2 Baso # (Auto) 0.1 Sodium 138 Potassium 4.3 Chloride 102 Carbon Dioxide 29 Anion Gap 11 BUN 12 Creatinine 0.6 L Est GFR ( Amer) > 60 Est GFR (Non-Af Amer) > 60 POC Glucose (mg/dL) Random Glucose 89 Calcium 8.9 Total Bilirubin 0.6 AST 33 ALT 16 Alkaline Phosphatase 53 Troponin I Total Protein 7.4 Albumin 3.7 Globulin 3.7 Fluid Type Synovial fluid Synovial WBC 2484.0 H Synovial RBC 14005.0 H Synovial Neutrophils 93.0 H Synovial Lymphocytes 3.0 H Synov Monos/Macrophage 4 H Synovial Fluid Comment TEST NOT PERFORMED 09/05/18 09/05/18 09/06/18 06:30 06:30 00:15 WBC 7.1 RBC 3.15 L Hgb 7.9 L Hct 25.4 L MCV 80.6 L MCH 25.2 L MCHC 31.2 L RDW 13.0 Plt Count 386 MPV 8.5 Neut % (Auto) 58.4 Lymph % (Auto) 28.6 [place] % (Auto) 8.5 Eos % (Auto) 3.9 Baso % (Auto) 0.6 Neut # (Auto) 4.2 Lymph # (Auto) 2.0 [place] # (Auto) 0.6 Eos # (Auto) 0.3 Baso # (Auto) 0.0 Sodium 138 Potassium 4.2 Chloride 102 Carbon Dioxide 30 Anion Gap 10 BUN 7 Creatinine 0.7 Est GFR ( Amer) > 60 Est GFR (Non-Af Amer) > 60 POC Glucose (mg/dL) Random Glucose 88 Calcium 8.5 Total Bilirubin AST ALT Alkaline Phosphatase Troponin I < 0.0120 Total Protein Albumin Globulin Fluid Type Synovial WBC Synovial RBC Synovial Neutrophils Synovial Lymphocytes Synov Monos/Macrophage Synovial Fluid Comment 09/06/18 11:30 WBC RBC Hgb Hct MCV MCH MCHC RDW Plt Count MPV Neut % (Auto) Lymph % (Auto) [place] % (Auto) Eos % (Auto) Baso % (Auto) Neut # (Auto) Lymph # (Auto) [place] # (Auto) Eos # (Auto) Baso # (Auto) Sodium Potassium Chloride Carbon Dioxide Anion Gap BUN Creatinine Est GFR ( Amer) Est GFR (Non-Af Amer) POC Glucose (mg/dL) 107 Random Glucose Calcium Total Bilirubin AST ALT Alkaline Phosphatase Troponin I Total Protein Albumin Globulin Fluid Type Synovial WBC Synovial RBC Synovial Neutrophils Synovial Lymphocytes Synov Monos/Macrophage Synovial Fluid Comment Microbiology 09/03/18 14:30 Blood-Venous Blood Culture - Preliminary NO GROWTH AFTER 3 DAYS 09/03/18 17:11 Other: Please Indicate Gram Stain - Final 09/03/18 17:11 Other: Please Indicate Body Fluid Culture - Preliminary NO GROWTH AFTER 3 DAYS 09/04/18 13:30 Knee - Right Gram Stain - Final 09/04/18 13:30 Knee - Right Wound Culture - Preliminary No growth. 09/04/18 13:30 Knee - Right Gram Stain - Final 09/04/18 13:30 Knee - Right Wound Culture - Preliminary No growth. 09/04/18 13:30 Knee - Right Gram Stain - Final 09/04/18 13:30 Knee - Right Wound Culture - Preliminary No growth. 09/03/18 15:20 Blood-Venous Blood Culture - Preliminary NO GROWTH AFTER 48 HOURS 09/03/18 16:45 Knee - Right Anaerobic Culture - Final NO ANAEROBES ISOLATED. Assessment and Plan - Assessment and Plan (Free Text) Assessment: A/P- 47 year old female with septic right knee. has remained afebrile since admission. normal wbc count blood cx- neg x 4 synovial fluid cx- negative x 4 synovial fluid cell count almost 2500 with almost all neutrophils, however not c/w septic joint as synovial fluid wbc count should be >25,000-50,000 to be Identified as septic joint. Plan- advise to continue with empiric vancomyicn for 2 more days. today is day #3 keep vanco trough between 10-15. keep the right leg elevated . can be d/c on oral abx ( keflex or augmentin for 10-14 days) and to have very close follow up with her orhtopedics / Dinah/Dr.Isaac hoppern to f/u with her PMD in [facility] and to make sure she gets seen bY ID doc in [facility] who would participate in workman's comp ( patient lives in [facility]). advised pt. if her right knee starts to get swollen or red or warm again to immediately notify her orthopedic doc and/or go to ER . All labs and imaging results and chart notes reviewed. All above d/w patient in the presence of the nurse and patient verbalizes full understanding of all above and agrees with above plan of care. case also d/w 's PA Dalila.
--- NOTE | 2018-09-06 10:05 | CARD ---
APPROVED REPORT Date of service: 09/05/2018 EKG Measurement Heart [id number] <Conclusion> Normal sinus rhythm Normal ECG
--- NOTE | 2018-09-06 10:42 | CP.PCM.PN ---
Subjective - Date & Time of Evaluation Date of Evaluation: 09/06/18 Time of Evaluation: 10:48 - Subjective Subjective: PT INDICATES THAT SWELLING OF R LEG HAS IMPROVED AND PAIN IS LESS SHE IS APPREHENSIVE AND DOES NOT LIKE MY ATTITUDE AND EXPLANATION OF FACTS SHE INDICATES THAT SHE DOES NOT HAVE A PRIMARY DOCTOR AND IS UNHAPPY ABOUT HER CURRENT ILLNESS AND CARE SHE ASKED A LOT OF QUESTIONS AND I EXPLAINED AND ANSWERED ALL TO THE BEST OF MY ABILITIES Objective - Vital Signs/Intake and Output Vital Signs (last 24 hours): Temp Pulse Resp BP Pulse Ox 98.8 F 78 19 136/78 98 09/06/18 08:52 09/06/18 08:52 09/06/18 08:52 09/06/18 08:52 09/06/18 08:52 - Medications Medications: Current Medications Acetaminophen (Tylenol 325mg Tab) 975 mg PO Q8 [facility] Hydrochlorothiazide (Microzide) 12.5 mg PO DAILY [facility] Last Admin: 09/05/18 08:42 Dose: Not Given Vancomycin HCl 1 gm/ Sodium (Chloride) 250 mls @ 166.667 mls/hr IVPB Q12 [facility]; Protocol Last Admin: 09/05/18 21:23 Dose: 166.667 mls/hr Lactobacillus Acidophilus (Bacid Acidophilus) 1 cap PO DAILY [facility] Morphine Sulfate (Morphine) 2 mg IVP Q6 PRN PRN Reason: Pain, severe (8-10) Last Admin: 09/06/18 06:03 Dose: 2 mg Oxycodone HCl (Oxycodone Immediate Release Tab) 5 mg PO Q4 PRN PRN Reason: Pain, Mild (1-3) Oxycodone HCl (Oxycodone Immediate Release Tab) 10 mg PO Q4 PRN PRN Reason: Pain, moderate (4-7) Simethicone (Mylicon Chew Tab) 80 mg PO Q8 PRN PRN Reason: Flatulence - Labs Labs: 09/05/18 06:30 09/05/18 06:30 PT 14.1 Seconds (9.8-13.1) H 09/03/18 14:30 INR 1.2 09/03/18 14:30 APTT 28.6 Seconds (25.6-37.1) 09/03/18 14:30 - Constitutional Appears: No Acute Distress - Head Exam Head Exam: ATRAUMATIC, NORMAL INSPECTION, NORMOCEPHALIC - Eye Exam Eye Exam: EOMI, Normal appearance, PERRL Pupil Exam: NORMAL ACCOMODATION, PERRL - ENT Exam ENT Exam: Mucous Membranes Moist, Normal Exam - Neck Exam Neck Exam: Full ROM, Normal Inspection. absent: Lymphadenopathy - Respiratory Exam Respiratory Exam: Clear to Ausculation Bilateral, NORMAL BREATHING PATTERN - Cardiovascular Exam Cardiovascular Exam: REGULAR RHYTHM, +S1, +S2. absent: Murmur - GI/Abdominal Exam GI & Abdominal Exam: Soft, Normal Bowel Sounds. absent: Tenderness - Rectal Exam Rectal Exam: NORMAL INSPECTION - Extremities Exam Extremities Exam: Full ROM, Normal Capillary Refill, Normal Inspection, Tenderness. absent: Joint Swelling, Pedal Edema Additional comments: R KNEE WITH IMPROVEMENT OF EDEMA - Back Exam Back Exam: NORMAL INSPECTION - Neurological Exam Neurological Exam: Alert, Awake, CN II-XII Intact, Normal Gait, Oriented x3 - Psychiatric Exam Psychiatric exam: Normal Affect, Normal Mood - Skin Skin Exam: Dry, Intact, Normal Color, Warm Assessment and Plan - Assessment and Plan (Free Text) Assessment: SEPTIC ARTHRITIS R KNEE HX OF G6PD DEFICIENCY HX OF CHRONIC ANEMIA ON HOME FEOSOL Plan: WILL CONTINUE CURRENT RX AWAIT INFECTIOUS DZ RE-EVALUATION REGARDING APPROPRIATE ANTIBIOTIC RX ON DISCHARGE HOME PT REASSURED
[2018-09-06] MEDS: Lactobacillus Acidophilus 500 MU Cap PO SCH (11:31)
[2018-09-07] MEDS: oxyCODONE 5 mg Immediate Release Tab PO PRN ×3 (01:02→20:27)
[2018-09-07] MEDS: Lactobacillus Acidophilus 500 MU Cap PO SCH (08:39)
[2018-09-07 09:37] LABS: BASO # 0.1 K/uL (0.0-0.2); BASO % 1.1 % (0.0-2.0); EOS # 0.2 K/uL (0.0-0.7); EOS % 2.8 % (0.0-4.0); HEMOGLOBIN 8.1 g/dL (12.0-16.0); LYMPH # 1.7 K/uL (1.0-4.3); MEAN CELL VOLUME 82.7 fl (81.0-99.0); MEAN CORPUSCULAR HEMOGLOBIN 25.1 pg (27.0-31.0); MEAN CORPUSCULAR HGB CONC 30.3 g/dL (33.0-37.0); MEAN PLATELET VOLUME 8.4 fl (7.2-11.7); MONO # 0.5 K/uL (0.0-0.8); MONO % 6.6 % (0.0-10.0); NEUT # 4.7 K/uL (1.8-7.0); NEUT % 65.5 % (50.0-75.0); NRBC % 0.2 % (0.0-0.0); RBC 3.24 Mil/uL (3.80-5.20); RED CELL DISTRIBUTION WIDTH 13.3 % (11.5-14.5); WHITE BLOOD COUNT 7.2 K/uL (4.8-10.8)
[2018-09-07 09:54] LABS: ALB/GLOB RATIO 0.9 (1.0-2.1); ALBUMIN 3.4 g/dL (3.5-5.0); ALT/SGPT 21 U/L (9-52); AST/SGOT 26 U/L (14-36); BLOOD UREA NITROGEN 8 mg/dl (7-17); CALCIUM 8.8 mg/dL (8.4-10.2); GFR NON-AFRICAN AMERICAN > 60
--- NOTE | 2018-09-07 10:53 | CP.PCM.PN ---
Subjective - Date & Time of Evaluation Date of Evaluation: 09/07/18 Time of Evaluation: 10:53 - Subjective Subjective: FEELS BETTER TODAY LESS R KNEE PAIN AND SWELLING AFEBRILE ABLE TO AMBULATE TO BATHROOM Objective - Vital Signs/Intake and Output Vital Signs (last 24 hours): Temp Pulse Resp BP Pulse Ox 98.0 F 69 20 129/70 98 09/07/18 07:43 09/07/18 07:43 09/07/18 07:43 09/07/18 07:43 09/07/18 07:43 - Medications Medications: Current Medications Acetaminophen (Tylenol 325mg Tab) 975 mg PO Q8 [facility] Last Admin: 09/07/18 08:41 Dose: 975 mg Hydrochlorothiazide (Microzide) 12.5 mg PO DAILY [facility] Last Admin: 09/07/18 08:39 Dose: 12.5 mg Vancomycin HCl 1 gm/ Sodium (Chloride) 250 mls @ 166.667 mls/hr IVPB Q12 [facility]; Protocol Last Admin: 09/07/18 08:42 Dose: 166.667 mls/hr Lactobacillus Acidophilus (Bacid Acidophilus) 1 cap PO DAILY [facility] Last Admin: 09/07/18 08:39 Dose: 1 cap Morphine Sulfate (Morphine) 2 mg IVP Q6 PRN PRN Reason: Pain, severe (8-10) Last Admin: 09/06/18 06:03 Dose: 2 mg Oxycodone HCl (Oxycodone Immediate Release Tab) 5 mg PO Q4 PRN PRN Reason: Pain, Mild (1-3) Last Admin: 09/07/18 07:52 Dose: 5 mg Oxycodone HCl (Oxycodone Immediate Release Tab) 10 mg PO Q4 PRN PRN Reason: Pain, moderate (4-7) Simethicone (Mylicon Chew Tab) 80 mg PO Q8 PRN PRN Reason: Flatulence - Labs Labs: 09/07/18 08:45 09/07/18 08:45 PT 14.1 Seconds (9.8-13.1) H 09/03/18 14:30 INR 1.2 09/03/18 14:30 APTT 28.6 Seconds (25.6-37.1) 09/03/18 14:30 - Constitutional Appears: No Acute Distress - Head Exam Head Exam: ATRAUMATIC, NORMAL INSPECTION, NORMOCEPHALIC - Eye Exam Eye Exam: EOMI, Normal appearance, PERRL Pupil Exam: NORMAL ACCOMODATION, PERRL - ENT Exam ENT Exam: Mucous Membranes Moist, Normal Exam - Neck Exam Neck Exam: Full ROM, Normal Inspection. absent: Lymphadenopathy - Respiratory Exam Respiratory Exam: Clear to Ausculation Bilateral, NORMAL BREATHING PATTERN - Cardiovascular Exam Cardiovascular Exam: REGULAR RHYTHM, +S1, +S2. absent: Murmur - GI/Abdominal Exam GI & Abdominal Exam: Soft, Normal Bowel Sounds. absent: Tenderness - Rectal Exam Rectal Exam: NORMAL INSPECTION - Extremities Exam Extremities Exam: Full ROM, Normal Capillary Refill. absent: Joint Swelling, Pedal Edema Additional comments: R KNEE SWELLING AND TENDERNESS WITH REDNESS IMPROVED - Back Exam Back Exam: NORMAL INSPECTION - Neurological Exam Neurological Exam: Alert, Awake, CN II-XII Intact, Normal Gait, Oriented x3 - Psychiatric Exam Psychiatric exam: Normal Affect, Normal Mood - Skin Skin Exam: Dry, Intact, Normal Color, Warm Assessment and Plan - Assessment and Plan (Free Text) Assessment: SEPTIC ARTHRITIS IMPROVED ANEMIA STABLE HX OF G6PD DEFICIENCY Plan: CONTINUE CURRENT RX DISCHARGE IN AM ON PO ANTIBIOTIC RX
[2018-09-07 16:37] VITALS: O2SAT 99
[2018-09-07] MEDS: Amoxicillin-Clav 875-125 mg Tab PO SCH (21:48)
[2018-09-07] MEDS: Pantoprazole 40 mg EC Tab PO ONE (21:50)
--- NOTE | 2018-09-08 01:34 | OP ---
PROCEDURE DATE: 09/04/2018 PREOPERATIVE DIAGNOSIS: Right septic knee. POSTOPERATIVE DIAGNOSIS: Right septic knee. PROCEDURE: Right knee arthroscopic washout. SURGEON: Duane Rizzo MD FLIGHT ATTENDANT INFLIGHT SERVICES: INDU Epps BLOOD LOSS: None. COMPLICATIONS: None. INDICATION: This is a 47-year-old female who recently underwent arthroscopic surgery and partial meniscectomy a few weeks ago. The patient presents to [facility] with complaint of increased pain and swelling of her right knee and recent fevers at home to 102 degrees as reported by the patient. Her right knee was aspirated. The patient had an elevated white count of over 2000 wbc with high neutrophil count. She is indicated for the above procedure. DESCRIPTION OF PROCEDURE: The patient was taken to the operating room and placed supine on the operating room table. After general anesthesia was given, the right lower extremity was prepped and draped in the standard surgical fashion. Right thigh tourniquet was also placed. Time-out was performed. The leg was then elevated and exsanguinated. The tourniquet was inflated to 300 mmHg. Old lateral and medial portal sites were used. Prior to the incision, an #18-gauge needle was inserted into the knee joint and about 5 mL of serosanguineous fluid was aspirated. This fluid was sent for pathology and cultures. Incision was made over the lateral portal. The trocar was then inserted with the camera. Arthroscopic evaluation of the knee was then performed. There was synovitis in the knee joint with mild purulent discharge. The medial portal was also nicked with a scalpel, and a shaver was introduced into the medial portal site. Synovectomy of the knee in the medial and lateral patellofemoral compartment was then performed. The knee joint was then evaluated again. 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 Tibial plateau cartilage was intact as were the menisci. ACL was intact. A total of 9 L of Bacitracin irrigation was then performed arthroscopically. The medial and lateral joint, patellofemoral joint, and medial and lateral gutters of the knee were thoroughly washed out. Arthroscopic instruments were then withdrawn. Portals were closed with nylon. Tourniquet was deflated and sterile dressing was applied consisting of Xeroform, 4x4's, and Braydon with Martin bandage. The patient tolerated the procedure well. She will be admitted to the hospital for IV antibiotics, and the patient's niece will be consulted. Duane Rizzo MD
[2018-09-08] MEDS: oxyCODONE 10 mg Immediate Release Tab PO PRN ×2 (03:42→09:36)
[2018-09-08] MEDS: Pantoprazole 40 mg EC Tab PO ONE (06:37)
[2018-09-08 08:22] VITALS: RESP 20; TEMP 98.1
--- NOTE | 2018-09-08 09:07 | CP.PCM.DIS ---
Provider - Provider Date of Admission: 09/03/18 18:49 Attending physician: Anton Castillo MD Consults: 09/08/18 07:59 Case Management Referral Routine Comment: Physician Instructions: Reason For Exam: Reason for Referral: Discharge Planning 09/03/18 18:49 Infectious Disease Consult Stat Comment: Consulting Provider: Conrad Bergeron Consulting Physician: Conrad Bergeron Reason for Consult: septic arthritis 09/06/18 08:57 Physician Consult Routine Comment: Consulting Provider: Duane Rizzo Consulting Physician: Duane Rizzo Reason for Consult: ortho postop mgmt Time Spent in preparation of Discharge (in minutes): 30 Diagnosis - Discharge Diagnosis (1) Septic arthritis of knee, right Status: Acute (2) Chronic anemia Status: Acute (3) History of ikgiepm-[id number] deficiency (G6PD) Status: Acute (4) Hypertension Status: Acute Hospital Course - Lab Results Lab Results: Micro Results 09/03/18 15:20 Blood-Venous Blood Culture - Preliminary NO GROWTH AFTER 4 DAYS 09/03/18 17:11 Other: Please Indicate Gram Stain - Final 09/03/18 17:11 Other: Please Indicate Body Fluid Culture - Final No growth. 09/03/18 14:30 Blood-Venous Blood Culture - Preliminary NO GROWTH AFTER 4 DAYS 09/04/18 13:30 Knee - Right Gram Stain - Final 09/04/18 13:30 Knee - Right Wound Culture - Final No growth. 09/04/18 13:30 Knee - Right Gram Stain - Final 09/04/18 13:30 Knee - Right Wound Culture - Final No growth. 09/04/18 13:30 Knee - Right Gram Stain - Final 09/04/18 13:30 Knee - Right Wound Culture - Final No growth. 09/03/18 16:45 Knee - Right Anaerobic Culture - Final NO ANAEROBES ISOLATED. Most Recent Lab Values WBC 7.2 K/uL (4.8-10.8) 09/07/18 08:45 RBC 3.24 Mil/uL (3.80-5.20) L 09/07/18 08:45 Hgb 8.1 g/dL (12.0-16.0) L 09/07/18 08:45 Hct 26.8 % (34.0-47.0) L 09/07/18 08:45 MCV 82.7 fl (81.0-99.0) D 09/07/18 08:45 MCH 25.1 pg (27.0-31.0) L 09/07/18 08:45 MCHC 30.3 g/dL (33.0-37.0) L 09/07/18 08:45 RDW 13.3 % (11.5-14.5) 09/07/18 08:45 Plt Count 473 K/uL (130-400) H 09/07/18 08:45 MPV 8.4 fl (7.2-11.7) 09/07/18 08:45 Neut % (Auto) 65.5 % (50.0-75.0) 09/07/18 08:45 Lymph % (Auto) 24.0 % (20.0-40.0) 09/07/18 08:45 Latimer % (Auto) 6.6 % (0.0-10.0) 09/07/18 08:45 Eos % (Auto) 2.8 % (0.0-4.0) 09/07/18 08:45 Baso % (Auto) 1.1 % (0.0-2.0) 09/07/18 08:45 Neut # (Auto) 4.7 K/uL (1.8-7.0) 09/07/18 08:45 Lymph # (Auto) 1.7 K/uL (1.0-4.3) 09/07/18 08:45 Latimer # (Auto) 0.5 K/uL (0.0-0.8) 09/07/18 08:45 Eos # (Auto) 0.2 K/uL (0.0-0.7) 09/07/18 08:45 Baso # (Auto) 0.1 K/uL (0.0-0.2) 09/07/18 08:45 PT 14.1 Seconds (9.8-13.1) H 09/03/18 14:30 INR 1.2 09/03/18 14:30 APTT 28.6 Seconds (25.6-37.1) 09/03/18 14:30 Sodium 139 mmol/l (132-148) 09/07/18 08:45 Potassium 4.3 MMOL/L (3.6-5.0) 09/07/18 08:45 Chloride 108 mmol/L (98-107) H 09/07/18 08:45 Carbon Dioxide 27 mmol/L (22-30) 09/07/18 08:45 Anion Gap 8 (10-20) L 09/07/18 08:45 BUN 8 mg/dl (7-17) 09/07/18 08:45 Creatinine 0.7 mg/dl (0.7-1.2) 09/07/18 08:45 Est GFR ( Amer) > 60 09/07/18 08:45 Est GFR (Non-Af Amer) > 60 09/07/18 08:45 POC Glucose (mg/dL) 107 mg/dL (65-110) 09/06/18 11:30 Random Glucose 85 mg/dL (65-105) 09/07/18 08:45 Calcium 8.8 mg/dL (8.4-10.2) 09/07/18 08:45 Total Bilirubin 0.4 mg/dl (0.2-1.3) 09/07/18 08:45 AST 26 U/L (14-36) 09/07/18 08:45 ALT 21 U/L (9-52) 09/07/18 08:45 Alkaline Phosphatase 56 U/L (38-126) 09/07/18 08:45 Troponin I < 0.0120 ng/mL (0.00-0.120) 09/06/18 00:15 Total Protein 7.1 G/DL (6.3-8.2) 09/07/18 08:45 Albumin 3.4 g/dL (3.5-5.0) L 09/07/18 08:45 Globulin 3.7 gm/dL (2.2-3.9) 09/07/18 08:45 Albumin/Globulin Ratio 0.9 (1.0-2.1) L 09/07/18 08:45 Fluid Type Synovial fluid 09/03/18 16:45 Synovial WBC 2484.0 /mm3 (0.0-150.0) H 09/03/18 16:45 Synovial RBC 82483.0 /mm3 (0.0-0.0) H 09/03/18 16:45 Synovial Neutrophils 93.0 % (0-0) H 09/03/18 16:45 Synovial Lymphocytes 3.0 % (0-0) H 09/03/18 16:45 Synov Monos/Macrophage 4 % (0-0) H 09/03/18 16:45 Synovial Fluid Comment TEST NOT PERFORMED 09/03/18 16:45 Vancomycin Trough 9.4 ug/mL (5.0-10.0) 09/07/18 08:45 - Hospital Course Hospital Course: R KNEE SWELLING AND PAIN IMPROVED CLEARED FOR DISCHARGE BY ORTHO ALL CULTURES STILL NEGATIVE Discharge Exam - Head Exam Head Exam: ATRAUMATIC, NORMAL INSPECTION, NORMOCEPHALIC - Eye Exam Eye Exam: EOMI, Normal appearance, PERRL Pupil Exam: NORMAL ACCOMODATION, PERRL - GI/Abdominal Exam GI & Abdominal Exam: Normal Bowel Sounds - Rectal Exam Rectal Exam: NORMAL INSPECTION - Extremities Exam Additional comments: R KNEE SWELLING AND PAIN WITH REDNESS IMPROVED - Neurological Exam Neurological exam: Alert, CN II-XII Intact, Normal Gait, Oriented x3, Reflexes Normal - Psychiatric Exam Psychiatric exam: Normal Affect, Normal Mood - Skin Skin Exam: Dry, Intact, Normal Color, Warm Discharge Plan - Discharge Medications Prescriptions: Amoxicillin/Clavulanate [Augmentin 875 MG-125 MG Tab] 1 tab PO Q12 #7 tab oxyCODONE [oxyCODONE Immediate Release Tab] 5 mg PO Q4 PRN #30 tab PRN Reason: Pain, Mild (1-3) - Follow Up Plan Condition: STABLE Disposition: HOME/ ROUTINE Instructions: Septic Arthritis Additional Instructions: follow up with primary MD and Dr. Rizzo 1 week Referrals: Duane Rizzo MD [Medical Doctor] - Anton Castillo MD [Staff Provider] -
[2018-09-08] MEDS: Amoxicillin-Clav 875-125 mg Tab PO SCH (09:35)
[2018-09-08] MEDS: Lactobacillus Acidophilus 500 MU Cap PO SCH (09:35)
--- NOTE | 2018-09-08 09:38 | CP.PCM.PN ---
Subjective - Date & Time of Evaluation Date of Evaluation: 09/08/18 Time of Evaluation: 07:30 - Subjective Subjective: Patient seen and examined at bedside. Pain well controlled, much improved. Tolerating PT well, ambulating with RW and stair climbing. No acute events overnight. No other complaints. Objective - Vital Signs/Intake and Output Vital Signs (last 24 hours): Temp Pulse Resp BP Pulse Ox 98.1 F 72 20 115/72 99 09/08/18 08:21 09/08/18 08:21 09/08/18 08:21 09/08/18 08:21 09/08/18 08:21 - Medications Medications: Current Medications Acetaminophen (Tylenol 325mg Tab) 975 mg PO Q8 [facility] Last Admin: 09/08/18 01:07 Dose: Not Given Amoxicillin/Clavulanate Potassium (Augmentin 875 Mg-125 Mg Tab) 1 tab PO Q12 [facility]; Protocol Last Admin: 09/07/18 21:48 Dose: 1 tab Hydrochlorothiazide (Microzide) 12.5 mg PO DAILY [facility] Last Admin: 09/07/18 08:39 Dose: 12.5 mg Lactobacillus Acidophilus (Bacid Acidophilus) 1 cap PO DAILY [facility] Last Admin: 09/07/18 08:39 Dose: 1 cap Morphine Sulfate (Morphine) 2 mg IVP Q6 PRN PRN Reason: Pain, severe (8-10) Last Admin: 09/06/18 06:03 Dose: 2 mg Oxycodone HCl (Oxycodone Immediate Release Tab) 5 mg PO Q4 PRN PRN Reason: Pain, Mild (1-3) Last Admin: 09/07/18 20:27 Dose: 5 mg Oxycodone HCl (Oxycodone Immediate Release Tab) 10 mg PO Q4 PRN PRN Reason: Pain, moderate (4-7) Last Admin: 09/08/18 03:42 Dose: 10 mg Simethicone (Mylicon Chew Tab) 80 mg PO Q8 PRN PRN Reason: Flatulence - Labs Labs: 09/07/18 08:45 09/07/18 08:45 PT 14.1 Seconds (9.8-13.1) H 09/03/18 14:30 INR 1.2 09/03/18 14:30 APTT 28.6 Seconds (25.6-37.1) 09/03/18 14:30 - Extremities Exam Additional comments: R knee: Dressings CDI mild swelling Sensation intact SP/DP/TN motor intact EHL/FHL/TA/G/Q/HS pedal pulses intact calves soft NT b/l Assessment and Plan (1) Septic arthritis Assessment & Plan: POD#4 s/p R knee arthroscopic I&D -abx as per ID -OR cultures finalized with no bacteria isolated -PT/OT WBAT -orthopedically stable for discharge to home -f/u in office within 7-10 days, call office for appt -above d/w Dr. Rizzo/Delroy in agreement Status: Deleted
--- NOTE | 2018-09-08 11:51 | CP.PCM.PN ---
Subjective - Date & Time of Evaluation Date of Evaluation: 09/08/18 Time of Evaluation: 10:30 - Subjective Subjective: 47 yo F S/P Rt knee Artrhoscopic I&D POD #4 Pt seen and examined at bedside, comfortable in bed, NAD Pt c/o mild right knee pain and swelling Pt denies SOB, chest pain, N/V/D, numbness/tingling RLE Objective - Vital Signs/Intake and Output Vital Signs (last 24 hours): Temp Pulse Resp BP Pulse Ox 98.1 F 72 20 115/72 99 09/08/18 08:21 09/08/18 08:21 09/08/18 08:21 09/08/18 08:21 09/08/18 08:21 - Medications Medications: Current Medications Acetaminophen (Tylenol 325mg Tab) 975 mg PO Q8 [facility] Last Admin: 09/08/18 09:36 Dose: 975 mg Amoxicillin/Clavulanate Potassium (Augmentin 875 Mg-125 Mg Tab) 1 tab PO Q12 [facility]; Protocol Last Admin: 09/08/18 09:35 Dose: 1 tab Hydrochlorothiazide (Microzide) 12.5 mg PO DAILY [facility] Last Admin: 09/08/18 09:35 Dose: 12.5 mg Lactobacillus Acidophilus (Bacid Acidophilus) 1 cap PO DAILY [facility] Last Admin: 09/08/18 09:35 Dose: 1 cap Morphine Sulfate (Morphine) 2 mg IVP Q6 PRN PRN Reason: Pain, severe (8-10) Last Admin: 09/06/18 06:03 Dose: 2 mg Oxycodone HCl (Oxycodone Immediate Release Tab) 5 mg PO Q4 PRN PRN Reason: Pain, Mild (1-3) Last Admin: 09/07/18 20:27 Dose: 5 mg Oxycodone HCl (Oxycodone Immediate Release Tab) 10 mg PO Q4 PRN PRN Reason: Pain, moderate (4-7) Last Admin: 09/08/18 09:36 Dose: 10 mg Simethicone (Mylicon Chew Tab) 80 mg PO Q8 PRN PRN Reason: Flatulence - Labs Labs: 09/07/18 08:45 09/07/18 08:45 PT 14.1 Seconds (9.8-13.1) H 09/03/18 14:30 INR 1.2 09/03/18 14:30 APTT 28.6 Seconds (25.6-37.1) 09/03/18 14:30 - Constitutional Appears: Well, Non-toxic, No Acute Distress - Respiratory Exam Respiratory Exam: Clear to Ausculation Bilateral, NORMAL BREATHING PATTERN - Cardiovascular Exam Cardiovascular Exam: REGULAR RHYTHM, RRR - Extremities Exam Additional comments: RLE: Knee incisions C/D/I ROM limited due to pain Calves soft and nontender b/l N/V intact distally Distal pulses wnl Assessment and Plan - Assessment and Plan (Free Text) Assessment: 47 yo F s/p rt knee arthroscopic I&D POD#4 Plan: Pt cleared for d/c on oral abx , as per ID recs Pain control PT/OT- WBAT DVT ppx- SCD b/l, pt unable to take aspirin due to G6PD disorder F/U with Dr. Potts 09/13/[address] Potts
[2018-09-08 12:25] VITALS: BP 118/71; PULSE 84
== END 2018-09-08 15:55 | disposition home or self-care (01) | DRG 489 ==
LOC: H.ER 12:57 → H.ERHOLD 18:49 → H.MEDSURG1 23:35
PROVIDERS: ADMIT Internal Medicine Pulmonary Disease; ATTEND Internal Medicine Pulmonary Disease
PROC: 0S9C3ZZ Drainage of Right Knee Joint, Percutaneous Approach (ICD-10-PCS; 2018-09-03)
PROC: 3E1U38X Irrigation of Joints using Irrigating Substance, Percutaneous Approach, Diagnostic (ICD-10-PCS; 2018-09-04)
PROC: 0SBC4ZZ Excision of Right Knee Joint, Percutaneous Endoscopic Approach (ICD-10-PCS; principal; 2018-09-04 10:00)
DX: M13.861 Other specified arthritis, right knee (principal); D55.0 Anemia due to glucose-6-phosphate dehydrogenase [G6PD] deficiency; M65.861 Other synovitis and tenosynovitis, right lower leg; M94.261 Chondromalacia, right knee; I10 Essential (primary) hypertension; Z88.5 Allergy status to narcotic agent